=== PATIENT | male | born 1960 | race Caucasian/White ===

== ENCOUNTER 2020-06-18 06:53 | Day surgery (SDC) | payer BC ==
[~2020-06-18] VITALS: Ht 185.4 cm; Wt 107.7 kg
[~2020-06-18 06:53] MED LIST: ALDACTONE 25MG25 M1 PO; AMOXICILLIN 8751 TAB PO; ASPIRIN E.C. 8181 MG PO; BYSTOLIC10 MG PO; COMPLETE SENIOR1 TA1 PO; EFFIENT10 MG PO; FORTAMET1000 MG PO; GLUCOPHAGE1000 MG PO; HCTZ 25MG TAB25 MG PO; HCTZ 25MG25 MG PO; INSULIN 70/3100 U/ML; LANTUS100 U/ML; LIPITOR20 MG PO; LISINOPRIL40 MG PO; LOPRESSOR100 MG PO; NITROSTAT0.4 MG/TAB SL; NORVASC 5MG5 MG/TAB PO; NOVOLOG100 U/ML IV; NOVOLOGMIX70/30 SQ; PREVACID 15MG15 M1 PO; VYTORIN 10 MG-41 TAB PO; ZESTRIL40 MG PO; ZOCOR 20MG20 MG PO; ZYRTEC 10MG10 MG PO
[2020-06-18 07:37] VITALS: BP 156/86; PULSE 69; TEMP 97.9
[2020-06-18] MEDS ORDERED: BASAGLAR K100 UNIT/1 SQ (07:54)
[2020-06-18] MEDS ORDERED: CATAPRES-TTS 10.1 M1 TD (07:55)
[2020-06-18] MEDS ORDERED: TRULICITY0.75 MG/0. SQ (07:55)
[2020-06-18] MEDS ORDERED: LIPITOR 80MG80 MG PO (07:56)
[2020-06-18] MEDS ORDERED: COREG 25MG25 MG/TAB PO (07:57)
[2020-06-18] MEDS ORDERED: ZESTRIL 20MG TA20 MG PO (07:58)
[2020-06-18] MEDS ORDERED: APRESOLINE50 MG PO (07:58)
[2020-06-18] MEDS ORDERED: LASIX 80MG TABL80 MG PO (08:00)
[2020-06-18] MEDS ORDERED: NORVASC 5MG5 MG/TAB PO (08:01)
[2020-06-18] MEDS ORDERED: ASPIRIN 81M81 MG/TA2 PO (08:01)
[2020-06-18] MEDS ORDERED: FERRO-TIME325 MG PO (08:03)
[2020-06-18] MEDS ORDERED: ZAROXOLYN 2.52.5 MG PO (08:04)
[2020-06-18] MEDS ORDERED: TUMS500 MG PO (08:04)
[2020-06-18 08:55] VITALS: BP 147/78; PULSE 63; TEMP 97
[2020-06-18 09:10] VITALS: BP 145/69; PULSE 64
[2020-06-18 09:25] VITALS: BP 147/78; PULSE 62
== END 2020-06-18 09:50 | disposition home or self-care (01) ==
LOC: SDCO 06:53
DX: Z12.11 Encounter for screening for malignant neoplasm of colon (principal); D12.2 Benign neoplasm of ascending colon; D12.5 Benign neoplasm of sigmoid colon; E78.00 Pure hypercholesterolemia, unspecified; I25.10 Atherosclerotic heart disease of native coronary artery without angina pectoris; G47.33 Obstructive sleep apnea (adult) (pediatric); K21.9 Gastro-esophageal reflux disease without esophagitis; E11.42 Type 2 diabetes mellitus with diabetic polyneuropathy; M19.90 Unspecified osteoarthritis, unspecified site; E11.22 Type 2 diabetes mellitus with diabetic chronic kidney disease; I12.9 Hypertensive chronic kidney disease with stage 1 through stage 4 chronic kidney disease, or unspecified chronic kidney disease; N18.6 End stage renal disease; Z88.8 Allergy status to other drugs, medicaments and biological substances
CPT/HCPCS: J2704; J7042

== ENCOUNTER → 2020-08-05 | Outpatient (CLI) | payer BC ==
[~2020-08-05] MED LIST changes: +APRESOLINE50 MG PO; +ASPIRIN 81M81 MG/TA2 PO; +BASAGLAR K100 UNIT/1 SQ; +CATAPRES-TTS 10.1 M1 TD; +COREG 25MG25 MG/TAB PO; +FERRO-TIME325 MG PO; +LASIX 80MG TABL80 MG PO; +LIPITOR 80MG80 MG PO; +TRULICITY0.75 MG/0. SQ; +TUMS500 MG PO; +ZAROXOLYN 2.52.5 MG PO; +ZESTRIL 20MG TA20 MG PO
== END ==
LOC: COL.RAD
DX: N18.4 Chronic kidney disease, stage 4 (severe) (principal)